=== PATIENT | male | born 2005 | race Two or more races ===

== ENCOUNTER 2023-03-31 16:28 | Emergency (ER) | payer SELFPAY ==
[~2023-03-31] VITALS: Ht 172.7 cm; Wt 86.4 kg
[2023-03-31 16:31] VITALS: TEMP 98.1
[2023-03-31 17:02] VITALS: BP 128/82; PULSE 72; RESP 16
[2023-03-31] MEDS ORDERED: IBUP-1554 PO ×2 (17:28→17:40)
[2023-03-31] MEDS ORDERED: BACL10TA PO ×2 (17:28→17:40)
== END 2023-03-31 17:43 | disposition home or self-care (01) ==
LOC: EMS 16:32
DX: S39.012A Strain of muscle, fascia and tendon of lower back, initial encounter (principal); M54.32 Sciatica, left side; X58.XXXA Exposure to other specified factors, initial encounter; Y93.89 Activity, other specified; Y92.89 Other specified places as the place of occurrence of the external cause; Y99.8 Other external cause status
CPT/HCPCS: 99283; Z7502